=== PATIENT | male | born 1995 | race Hispanic/Latino ===

== ENCOUNTER 2021-09-28 23:00 | Inpatient (IN) | payer BC ==
[2021-09-28] MEDS ORDERED: ONDANSETRON 4 MG/2 ML VIAL ONE (23:55)
[2021-09-28] MEDS ORDERED: MORPHINE 4 MG/ML SYR ONE (23:55)
[2021-09-28] MEDS ORDERED: Ringers Lactate 1,000 ML IV ONE (23:55)
[2021-09-29 00:18] LABS: Absolute Lymphocytes (CBC) 1.7 K/uL (0.7-4.9); Hematocrit 48.3 % (39.6-49.0); Lymphocytes % 14.7 % (15.3-44.8); MPV 9.1 fL (7.6-11.3); RBC Red Blood Cell Count 5.43 M/uL (4.33-5.43)
[2021-09-29 00:41] LABS: BUN Blood Urea Nitrogen 17 mg/dL (7-18); Bicarbonate 29 mmol/L (21-32); Glucose Level 111 mg/dL (74-106); Potassium 3.9 mmol/L (3.5-5.1); Sodium Level 137 mmol/L (136-145)
[2021-09-29 00:42] LABS: ALT/SGPT 83 U/L (12-78); AST/SGOT 32 U/L (15-37); Albumin 3.9 g/dL (3.4-5.0); Alkaline Phosphatase 101 U/L (45-117); Bilirubin Direct 0.2 mg/dL (0-0.2); Bilirubin Total 0.8 mg/dL (0.2-1.0); Lipase 1229 U/L (73-393); Protein, Total 7.5 g/dL (6.4-8.2)
[2021-09-29 02:11] LABS: Urine Blood Trace-intact (Negative); Urine Glucose Negative (Negative); Urine Protein Negative (Negative); Urine Specific Gravity 1.015 (1.005-1.030); Urine pH 6.5 (5.0-7.0)
--- NOTE | 2021-09-29 02:19 | ER ---
Nurse's Notes [facility] Name: Jaydon Espana Age: 25 yrs Sex: Male : 1995 Arrival Date: 09/28/2021 Time: 23:05 Bed 16 Private MD: Diagnosis: Other acute pancreatitis without necrosis or infection Presentation: 09/28 23:19 Chief complaint: Patient states: I am having upper mid abdominal pain and back pain X 2 ld1 days. Coronavirus screen: At this time, the client does not indicate any symptoms associated with coronavirus-19. Ebola Screen: No symptoms or risks identified at this time. Initial Sepsis Screen: Does the patient meet any 2 criteria? No. Patient's initial sepsis screen is negative. Does the patient have a suspected source of infection? No. Patient's initial sepsis screen is negative. Risk Assessment: Do you want to hurt yourself or someone else? Patient reports no desire to harm self or others. Onset of symptoms was September 28, 2021. 23:19 Method Of Arrival: Ambulatory ld1 23:19 Acuity: AURELIA 3 ld1 Triage Assessment: 23:21 General: Appears in no apparent distress. comfortable, Behavior is calm, cooperative, ld1 appropriate for age. Pain: Complains of pain in back and epigastric area Pain does not radiate. Neuro: Level of Consciousness is awake, alert, obeys commands, Oriented to person, place, time, situation. Respiratory: Airway is patent Respiratory effort is even, unlabored, Respiratory pattern is regular, symmetrical. GI: Abdomen is round non-distended. Historical: - Allergies: 23:21 No Known Allergies; ld1 - Home Meds: 23:21 losartan-hydrochlorothiazide oral [Active]; rosuvastatin oral [Active]; ld1 - PMHx: 23:21 Hypertensive disorder; Hypercholesterolemia; Fatty liver; Pancreatitis; ld1 - PSHx: 23:21 None; ld1 - Immunization history:: Adult Immunizations not up to date, Client reports having NOT received the Covid vaccine. - Social history:: Smoking status: Reported history of juuling and/or vaping. Patient uses alcohol, on a daily basis. Screenin/06 00:12 Abuse screen: Denies threats or abuse. Nutritional screening: No deficits noted. ld1 Tuberculosis screening: No symptoms or risk factors identified. Fall Risk None identified. Assessment: 00:12 GI: Bowel sounds present X 4 quads. hyperactive in right upper quadrant, left upper ld1 quadrant, right lower quadrant and left lower quadrant Abdomen is tender to palpation in left upper quadrant and left lower quadrant. 00:13 General: Appears uncomfortable, well groomed, Behavior is calm, cooperative, ld1 appropriate for age, Smells of. Pain: Complains of pain in left low back and right low back and abdomen. Neuro: No deficits noted. Cardiovascular: No deficits noted. Respiratory: No deficits noted. : No deficits noted. Derm: No deficits noted. 01:15 Reassessment: Patient and/or family updated on plan of care and expected duration. Pain ld1 level reassessed. Patient is alert, oriented x 3, equal unlabored respirations, skin warm/dry/pink. Patient states feeling better. 02:30 Reassessment: Patient and/or family updated on plan of care and expected duration. Pain bb level reassessed. Patient is alert, oriented x 3, equal unlabored respirations, skin warm/dry/pink. Patient states feeling better. Patient states symptoms have improved. 10:02 Reassessment: Pt aaox4, ambulatory to restroom and back without difficulty. Pt eo2 presently denies pain, educated on lovenox ordered, refused medical lead, also refused nicotine patch stating "I don't smoke that much". Pt with clear fluids breakfast tray, tolerated well. Pt appears in NAD, comfort measures met, will continue to monitor. 21:16 Reassessment: Pt transported to unit via wheelchair. In NAD. Denies pain. Amb w steady ic1 gait. AAOx4. GCS 15. Vital Signs: 09/28 23:19 BP 156 / 108; Pulse 86; Resp 18; Temp 98.4(O); Pulse Ox 100% on R/A; Weight 81.65 kg; ld1 Height 5 ft. 4 in. (162.56 cm); Pain 8/10; 09/29 00:12 BP 136 / 89; Pulse 89; Pulse Ox 99% ; Pain 8/10; ld1 02:30 BP 130 / 88; Pulse 87; Resp 16; Pulse Ox 100% on R/A; Pain 6/10; bb 10:00 BP 144 / 92; Pulse 69; Resp 17; Temp 98.5; Pulse Ox 99% ; Pain 0/10; eo2 21:16 BP 129 / 91; Pulse 84; Resp 18; Pulse Ox 100% on R/A; ic1 09/28 23:19 Body Mass Index 30.90 (81.65 kg, 162.56 cm) ld1 ED Course: 09/28 23:05 Patient arrived in ED. kc5 23:21 Triage completed. ld1 23:21 Arm band placed on right wrist. ld1 23:26 Tony Bender PA is PHCP. jmm 23:26 Sebas Corona MD is Attending Physician. jmm 23:39 Initial lab(s) drawn, by wa, sent to lab. Inserted saline lock: 22 gauge in right lt3 antecubital area, using aseptic technique. 09/29 00:11 Ruthie Montgomery, RN is Primary Nurse. ld1 00:13 Patient has correct armband on for positive identification. Bed in low position. Call ld1 light in reach. Adult w/ patient. 01:37 US Abdomen Limited In Process Unspecified. EDMS 01:41 CT Abd/Pelvis - IV Contrast Only In Process Unspecified. EDMS 02:17 Hamilton Sibley MD is Hospitalizing Provider. jmm 03:20 No provider procedures requiring assistance completed. Patient admitted, IV remains in bb place. intact, bleeding controlled, No redness/swelling at site. Administered Medications: 09/28 23:58 Drug: Lactated Ringers Solution 1000 ml Route: IV; Rate: 1000 bolus; Site: right ld1 antecubital; 09/29 03:22 Follow up: Response: No adverse reaction; IV Status: Completed infusion; IV Intake: bb 1000ml 09/28 23:58 Drug: morphine 4 mg Route: IVP; Site: right antecubital; ld1 09/29 03:22 Follow up: Response: No adverse reaction; Pain is decreased bb 09/28 23:58 Drug: Zofran (Ondansetron) 4 mg Route: IVP; Site: right antecubital; ld1 09/29 02:00 Follow up: Response: No adverse reaction; Pain is decreased bb Intake: 03:22 IV: 1000ml; Total: 1000ml. bb Outcome: 02:18 Decision to Hospitalize by Provider. jmm 03:20 Admitted to ER Hold. Please see EATON for further documentation. bb 03:20 Condition: stable 03:20 Instructed on the need for admit. 21:18 Patient left the ED. ic1 Signatures: Dispatcher [employer] EDTony Gibson PA PA jmm Ballard, Brenda RN RN bb Ruthie Montgomery RN RN ld1 Coleen Armstrong kc5 Lizet Maria 3 Tory Soni RN RN eo2 Radha Son RN RN ic1
--- NOTE | 2021-09-29 02:19 | EDPHYS ---
Physician Documentation [facility] Name: Jaydon Espana Age: 25 yrs Sex: Male : 1995 Arrival Date: 09/28/2021 Time: 23:05 Bed 16 Private MD: ED Physician Sebas Corona HPI: 09/29 00:46 This 25 yrs old Male presents to ER via Ambulatory with complaints of jmm Abdominal Pain, Low Back Pain. 00:46 The patient presents with abdominal pain. Onset: The symptoms/episode began/occurred jmm gradually, 2 day(s) ago. The symptoms radiate to Associated signs and symptoms: Pertinent positives: nausea and vomiting. The symptoms are described as achy, dull. Modifying factors: The symptoms are alleviated by nothing, the symptoms are aggravated by food. The patient has not experienced similar symptoms in the past. Historical: - Allergies: 09/28 23:21 No Known Allergies; ld1 - Home Meds: 23:21 losartan-hydrochlorothiazide oral [Active]; rosuvastatin oral [Active]; ld1 - PMHx: 23:21 Hypertensive disorder; Hypercholesterolemia; Fatty liver; Pancreatitis; ld1 - PSHx: 23:21 None; ld1 - Immunization history:: Adult Immunizations not up to date, Client reports having NOT received the Covid vaccine. - Social history:: Smoking status: Reported history of juuling and/or vaping. Patient uses alcohol, on a daily basis. ROS: 09/29 00:46 Constitutional: Negative for fever, chills, and weight loss, Cardiovascular: Negative jmm for chest pain, palpitations, and edema, Respiratory: Negative for shortness of breath, cough, wheezing, and pleuritic chest pain. Abdomen/GI: Positive for abdominal pain, nausea and vomiting. All other systems are negative. Exam: 00:46 Constitutional: This is a well developed, well nourished patient who is awake, alert, jmm and in no acute distress. Head/Face: atraumatic. Eyes: EOMI, no conjunctival erythema appreciated ENT: Moist Mucus Membranes Neck: Trachea midline, Supple Chest/axilla: Normal chest wall appearance and motion. Cardiovascular: Regular rate and rhythm. No edema appreciated Respiratory: Normal respirations, no respiratory distress appreciated 00:46 Back: Normal ROM Skin: General appearance color normal MS/ Extremity: Moves all extremities, no obvious deformities appreciated, no edema noted to the lower extremities Neuro: Awake and alert, normal gait Psych: Behavior is normal, Mood is normal, Patient is cooperative and pleasant 00:46 Abdomen/GI: Inspection: abdomen appears normal, Bowel sounds: normal, Palpation: soft, moderate abdominal tenderness, in the epigastric area, right upper quadrant and left upper quadrant. Vital Signs: 09/28 23:19 BP 156 / 108; Pulse 86; Resp 18; Temp 98.4(O); Pulse Ox 100% on R/A; Weight 81.65 kg; ld1 Height 5 ft. 4 in. (162.56 cm); Pain 8/10; 09/29 00:12 BP 136 / 89; Pulse 89; Pulse Ox 99% ; Pain 8/10; ld1 02:30 BP 130 / 88; Pulse 87; Resp 16; Pulse Ox 100% on R/A; Pain 6/10; bb 10:00 BP 144 / 92; Pulse 69; Resp 17; Temp 98.5; Pulse Ox 99% ; Pain 0/10; eo2 21:16 BP 129 / 91; Pulse 84; Resp 18; Pulse Ox 100% on R/A; ic1 09/28 23:19 Body Mass Index 30.90 (81.65 kg, 162.56 cm) ld1 MDM: 09/28 23:37 Patient medically screened. [facility] 09/29 02:17 Data reviewed: vital signs, nurses notes. Counseling: I had a detailed discussion with [facility] the patient and/or guardian regarding: the historical points, exam findings, and any diagnostic results supporting the discharge/admit diagnosis, the need for outpatient follow up, to return to the emergency department if symptoms worsen or persist or if there are any questions or concerns that arise at home. ED course: I discussed the patient with Dr. Sibley whom accepted the patient for admission. . 09/28 23:24 Order name: Basic Metabolic Panel; Complete Time: 00:45 ld09/28 23:24 Order name: CBC with Diff; Complete Time: 00:38 ld09/28 23:24 Order name: Hepatic Function; Complete Time: 00:45 ld1 09/28 23:24 Order name: Lipase; Complete Time: 00:45 ld09/29 00:47 Order name: SARS-COV-2 RT PCR (Document "Date of Onset" if Symptomatic) m 09/29 02:11 Order name: Urine Dipstick-Ancillary; Complete Time: 02:13 EDMS 09/29 02:56 Order name: Comprehensive Metabolic Panel EDMS 09/29 02:56 Order name: Comprehensive Metabolic Panel EDMS 09/29 02:56 Order name: Lipid Profile EDMS 09/29 02:56 Order name: Lipid Profile EDMS 09/29 02:56 Order name: CBC with Automated Diff EDMS 09/29 02:56 Order name: CBC with Automated Diff EDMS 09/29 02:57 Order name: Lipase EDMS 09/29 02:57 Order name: Lipase EDMS 09/28 23:24 Order name: IV Saline Lock; Complete Time: 23:39 ld1 09/28 23:24 Order name: Labs collected and sent; Complete Time: 23:39 1 09/28 23:39 Order name: CT Abd/Pelvis - IV Contrast Only [facility] 09/29 00:39 Order name: US Abdomen Limited [facility] 09/29 02:56 Order name: Clear Liquid EDMO Administered Medications: 09/28 23:58 Drug: Lactated Ringers Solution 1000 ml Route: IV; Rate: 1000 bolus; Site: right ld1 antecubital; 09/29 03:22 Follow up: Response: No adverse reaction; IV Status: Completed infusion; IV Intake: bb 1000ml 09/28 23:58 Drug: morphine 4 mg Route: IVP; Site: right antecubital; 1 09/29 03:22 Follow up: Response: No adverse reaction; Pain is decreased 09/28 23:58 Drug: Zofran (Ondansetron) 4 mg Route: IVP; Site: right antecubital; 1 09/29 02:00 Follow up: Response: No adverse reaction; Pain is decreased Disposition: 09/30 02:10 Co-signature as Attending Physician, Sebas Corona MD. pkl Disposition Summary: 09/29/21 02:18 Hospitalization Ordered Hospitalization Status: Observation jm Provider: Hamilton Sibley Condition: Stable jmm Problem: new jmm Symptoms: are unchanged jmm Bed/Room Type: Standard [facility] Location: Telemetry/MedSurg (observation)(09/29/21 19:51) Room Assignment: 429(09/29/21 19:51) cg Diagnosis - Other acute pancreatitis without necrosis or infection [facility] Forms: - Medication Reconciliation Form [facility] - SBAR form [facility] Signatures: Dispatcher [employer] EDMS Sebas Corona MD MD pkl Mickail, Joel, PA PA jmm Smirch, Shelby, RN RN ss Niru Vaca RN RN cg Ruthie Montgomery RN RN ld1 Mckenzie Alejandre RN bb Corrections: (The following items were deleted from the chart) 09/28 23:59 23:24 Urine Dipstick-Ancillary ordered. ld1 ld1 09/29 11:57 02:18 Telemetry/MedSurg (observation) [facility] 11:57 02:18 [facility] 19:51 11:57 [facility] [place] [facility] [facility]
--- NOTE | 2021-09-29 02:41 | P.HP ---
Certification for Inpatient Patient admitted to: Observation With expected LOS: >2 Midnights Patient will require the following post-hospital care: None Practitioner: I am a practitioner with admitting privileges, knowledge of patient current condition, hospital course, and medical plan of care. Services: Services provided to patient in accordance with Admission requirements found in Title 42 Section 412.3 of the Code of Federal Regulations Patient History Date of Service: 09/29/21 Reason for admission: Abdominal pain History of Present Illness: 25-year-old male with past medical history of hypertension, hyperlipidemia, previous pancreatitis admitted after developing abdominal pain epigastric area radiating to the back, since the last 2 days. Patient states recent alcoholic binge. He is a daily smoker and drinks alcohol daily basis. He denies any fever, dysuria or hematuria. On presentation in the ED he had noted elevated lipase of greater than [address] scan evidence of acute pancreatitis. An abdominal ultrasound shows no evidence of gallstones. He has been admitted for acute pancreatitis Home medications list reviewed: Yes - Past Medical/Surgical History Has patient received pneumonia vaccine in the past: No Diabetic: No -: Hypertension -: Hyperlipidemia -: Chronic alcohol use Past Surgical History: Reviewed- Non-Contributory - Social History Smoking Status: Light Tobacco smoker (1-9 cigarettes/day) Smoking therapy provided: Yes Patient receptive to therapy: Yes Alcohol use: Yes CD- Drugs: No Caffeine use: No Place of Residence: Home Review of Systems 10-point ROS is otherwise unremarkable Physical Examination - Physical Exam General: Alert, In no apparent distress, Oriented x3 HEENT: Atraumatic, Normocephalic, PERRLA Neck: Supple, 2+ carotid pulse no bruit, JVD not distended Respiratory: Clear to auscultation bilaterally, Normal air movement Cardiovascular: No edema, Normal pulses, Regular rate/rhythm, Normal S1 S2 Capillary refill: <2 Seconds Gastrointestinal: Normal bowel sounds, Soft and benign, Non-distended, No ascites, Tenderness Musculoskeletal: No clubbing, No swelling Neurological: Normal gait, Normal speech, Normal strength at 5/5 x4 extr - Studies Laboratory Data (last 24 hrs) 09/28/21 23:30: WBC 11.30 H, Hgb 16.4, Hct 48.3, Plt Count 210 09/28/21 23:30: Sodium 137, Potassium 3.9, BUN 17, Creatinine 0.95, Glucose 111 H, Total Bilirubin 0.8, AST 32, ALT 83 H, Alkaline Phosphatase 101, Lipase 1229 H Assessment and Plan - Problems (Diagnosis) (1) Acute pancreatitis Current Visit: Yes Status: Acute (2) Hypertension Current Visit: Yes Status: Acute (3) HLD (hyperlipidemia) Current Visit: Yes Status: Acute - Plan Acute pancreatitis/will admit to observation Gentle IV fluid Will do n.p.o. status for now. Advance to clear liquid in a.m. if trending down lipase As needed IV pain medication Need for alcohol cessation discussed Follow lipase trend daily Possible hospital stay for the next 1 to 2 days Chronic alcohol use/withdrawal Ativan as needed Chronic tobacco usepatient still vapes, tobacco cessation advised We will do nicotine patch Hypertensionresume home regimen with losartan DVT prophylaxissubcutaneous Lovenox - Advance Directives Does patient have a Living Will: No Does patient have a Durable POA for Healthcare: No Time Spent Managing Pts Care (In Minutes): 60
[2021-09-29] MEDS ORDERED: ONDANSETRON 4 MG/2 ML VIAL IV PRN (02:54)
[2021-09-29] MEDS: NA CHLORIDE 0.9% 1,000 ML IV SCH ×3 (03:00→22:05)
[2021-09-29] MEDS ORDERED: HYDRALAZINE HCL 20 MG/ML VIAL IV PRN (03:01)
[2021-09-29] MEDS ORDERED: LORAZEPAM 0.5 MG TABLET PO PRN (03:01)
[2021-09-29 04:31] VITALS: BMI 27.4
[2021-09-29] MEDS ORDERED: NA CHLORIDE 0.9% 1,000 ML ONE ×2 (05:25→13:54)
[2021-09-29] MEDS ORDERED: MORPHINE 4 MG/ML SYR ONE (05:25)
[2021-09-29] MEDS: MORPHINE 2 MG/ML SYR IV PRN ×2 (05:35→23:24)
--- NOTE | 2021-09-29 07:56 | RAD REPORT ---
EXAM DESCRIPTION: US - Abdomen Exam Limited - 09/29/2021 1:37 am CLINICAL HISTORY: Abdominal pain. COMPARISON: None. FINDINGS: The gallbladder wall is not thickened. A gallstone is not seen. The biliary tree is normal caliber. Small amount of peripancreatic fluid IMPRESSION: Unremarkable gallbladder ultrasound. Small amount of peripancreatic fluid may indicate pancreatitis
[2021-09-29] MEDS ORDERED: NICOTINE 21 MG/PAT TD ONE (09:26)
[2021-09-29] MEDS ORDERED: ENOXAPARIN 40 MG/0.4 ML SQ ONE (09:27)
[2021-09-29] MEDS: ENOXAPARIN 40 MG/0.4 ML SQ SCH (09:30)
[2021-09-29] MEDS: NICOTINE 21 MG/PAT TD SCH (09:30)
--- NOTE | 2021-09-29 15:56 | P.PN ---
Date of Service: 09/29/21 Problem List Acute pancreatitis COVID-19 positive feeling better, still with pain/discomfort tolerating clear liquids for lunch will advance to soft diet for dinner if continues to improve, anticipate dc home tomorrow patient also found to be positive for COVID, no respiratory symptoms, 99% on RA
--- NOTE | 2021-09-29 17:48 | RAD REPORT ---
EXAM DESCRIPTION: CT - Abdomen Pelvis W Contrast - 09/29/2021 4:37 am CLINICAL HISTORY: 25 years, Male, ABD PAIN COMPARISON: None TECHNIQUE: Contrast-enhanced images of the abdomen and pelvis were performed utilizing 5 mm slice th ickness at 5 mm interval reconstruction from the lung bases to the ischial tuberosities after the adm inistration IV contrast. In addition multiplanar reformats in the coronal and sagittal plane were obtained and reviewed. This exam was performed according to our departmental dose-optimization protocol, which includes auto mated exposure control, adjustment of the mA and/or kV according to patient size and/or use of iterat ez reconstruction technique. FINDINGS: The lung bases demonstrate to be clear. The liver demonstrate decreased attenuation corresponding to fatty infiltration. Otherwise the liver, gallbladder, spleen and adrenal glands demonstrate to be unremarkable, no focal lesions are noted. There is prominence of the pancreatic head/uncinate process measuring 3.9 cm with surrounding peripan creatic haziness tracking along the right side mesenteric root and right paracolic gutter on axial im age 24-47 corresponding to pancreatitis. There is no evidence for pseudocyst formation and/or hemorrh age. The kidneys demonstrate normal uptake of contrast media. No evidence for nephrolithiasis and/or hydro nephrosis. There is a tiny upper pole left renal cyst measuring 0.8 cm on image 18/92 Grossly the unopacified stomach, small bowel and large bowel demonstrate to be within normal limits. There is no evidence for bowel dilatation and/or free air. The appendix is normal. The left site colon is decompressed The urinary bladder demonstrate to be unremarkable. The prostate gland is normal. The aorta demon strate to be normal. There is no retroperitoneal lymphadenopathy. There is no evidence for ascites/ or significant abnormal fluid collections. The rest of the soft tissue and bony structures are within normal limits. IMPRESSION: Findings highly suggestive of acute pancreatitis. Fatty infiltration of the liver. 0.8 cm left renal cyst. Electronically signed by: Radames Flores MD 09/29/2021 2:04 AM [employer] ARCHITECT Due to temporary technical issues with the PACS/Fluency reporting system, reports are being signed by the in house radiologists without review as a courtesy to insure prompt reporting. The interpreting radiologist is fully responsible for the content of the report.
[2021-09-30] MEDS: MORPHINE 2 MG/ML SYR IV PRN ×2 (03:15→23:28)
[2021-09-30 03:33] LABS: Absolute Lymphocytes (CBC) 2.9 K/uL (0.7-4.9); Hematocrit 47.4 % (39.6-49.0); Lymphocytes % 37.1 % (15.3-44.8); MPV 8.8 fL (7.6-11.3); RBC Red Blood Cell Count 5.26 M/uL (4.33-5.43)
[2021-09-30 03:52] LABS: ALT/SGPT 76 U/L (12-78); AST/SGOT 34 U/L (15-37); Albumin 3.5 g/dL (3.4-5.0); Alkaline Phosphatase 91 U/L (45-117); BUN Blood Urea Nitrogen 8 mg/dL (7-18); Bicarbonate 30 mmol/L (21-32); Bilirubin Total 0.8 mg/dL (0.2-1.0); Glucose Level 94 mg/dL (74-106); HDL Cholesterol 47 mg/dL (40-60); LDL Cholesterol, Calculated 85 (<130); Lipase 1054 U/L (73-393); Potassium 3.6 mmol/L (3.5-5.1); Protein, Total 7.3 g/dL (6.4-8.2); Sodium Level 138 mmol/L (136-145)
[2021-09-30] MEDS: NA CHLORIDE 0.9% 1,000 ML IV SCH (08:34)
[2021-09-30] MEDS: NICOTINE 21 MG/PAT TD SCH (08:34)
[2021-09-30] MEDS: ENOXAPARIN 40 MG/0.4 ML SQ SCH (08:34)
[2021-09-30] MEDS ORDERED: KETOROLAC 30 MG/ML INJ IV ONE (18:21)
--- NOTE | 2021-09-30 18:28 | P.PN ---
Date of Service: 09/30/21 Subjective: Worsening pain after soft diet Reports did okay with clear liquids yesterday No new symptoms no nausea, no shortness of breath, no cough ROS: 10 point ROS as noted above, otherwise negative Physical exam GEN: Alert, oriented, NAD HEENT: Normal conjunctiva, sclera anicteric CV: Regular rate and rhythm, no edema Pulm: Nonlabored respiration on room air ABD: Soft, mild epigastric tenderness Neuro: Normal speech, normal affect Problem List Acute pancreatitis COVID-19 positive Painless soft diet, back down to clear liquids for breakfast and lunch If tolerates can be discharged home later today Would not need any prescriptions on discharge Advised to never drink alcohol again patient also found to be positive for COVID, no respiratory symptoms, 99% on RA Time Spent Managing Pts Care (In Minutes): 35
[2021-09-30] MEDS ORDERED: KETOROLAC 30 MG/ML INJ IV PRN (22:34)
[2021-10-01 00:45] VITALS: O2SAT 100
[2021-10-01] MEDS ORDERED: ACETAMINOPHEN 500 MG TAB PO PRN (06:12)
--- NOTE | 2021-10-01 06:14 | P.PN ---
Date of Service: 10/01/21 Subjective: ROS: 10 point ROS as noted above, otherwise negative Physical exam GEN: Alert, oriented, NAD HEENT: Normal conjunctiva, sclera anicteric CV: Regular rate and rhythm, no edema Pulm: Nonlabored respiration on room air ABD: Soft, mild epigastric tenderness Neuro: Normal speech, normal affect Problem List Acute pancreatitis COVID-19 positive Painless soft diet, back down to clear liquids for breakfast and lunch If tolerates can be discharged home later today Would not need any prescriptions on discharge Advised to never drink alcohol again patient also found to be positive for COVID, no respiratory symptoms, 99% on RA Time Spent Managing Pts Care (In Minutes): 35
[2021-10-01] MEDS: ENOXAPARIN 40 MG/0.4 ML SQ SCH (07:46)
[2021-10-01] MEDS: NICOTINE 21 MG/PAT TD SCH (07:47)
[2021-10-01] MEDS ORDERED: SODIUM CHL 0.9% 1000 ML BAG IV ONE (09:00)
[2021-10-01 10:09] LABS: ALT/SGPT 70 U/L (12-78); AST/SGOT 32 U/L (15-37); Albumin 3.5 g/dL (3.4-5.0); Alkaline Phosphatase 79 U/L (45-117); BUN Blood Urea Nitrogen 9 mg/dL (7-18); Bicarbonate 30 mmol/L (21-32); Bilirubin Total 0.7 mg/dL (0.2-1.0); Glucose Level 114 mg/dL (74-106); Lipase 844 U/L (73-393); Potassium 3.8 mmol/L (3.5-5.1); Protein, Total 7.2 g/dL (6.4-8.2); Sodium Level 139 mmol/L (136-145)
[2021-10-01 13:50] VITALS: BP 124/76; TEMP 97.8
--- NOTE | 2021-10-01 16:29 | P.DS ---
Admission Date: 09/29/21 Discharge Date: 10/01/21 Disposition: ROUTINE DISCHARGE Discharge Condition: GOOD Reason for Admission: Pancreatitis Procedures: CT abdomen/pelvis (09/29): FINDINGS: The lung bases demonstrate to be clear. The liver demonstrate decreased attenuation corresponding to fatty infiltration. Otherwise the liver, gallbladder, spleen and adrenal glands demonstrate to be unremarkable, no focal lesions are noted. There is prominence of the pancreatic head/uncinate process measuring 3.9 cm with surrounding peripancreatic haziness tracking along the right side mesenteric root and right paracolic gutter on axial image 24-47 corresponding to pancreatitis. There is no evidence for pseudocyst formation and/or hemorrhage. The kidneys demonstrate normal uptake of contrast media. No evidence for nephrolithiasis and/or hydronephrosis. There is a tiny upper pole left renal cyst measuring 0.8 cm on image 18/92 Grossly the unopacified stomach, small bowel and large bowel demonstrate to be within normal limits. There is no evidence for bowel dilatation and/or free air. The appendix is normal. The left site colon is decompressed The urinary bladder demonstrate to be unremarkable. The prostate gland is normal. The aorta demonstrate to be normal. There is no retroperitoneal lymphadenopathy. There is no evidence for ascites/or significant abnormal fluid collections. The rest of the soft tissue and bony structures are within normal limits. IMPRESSION: Findings highly suggestive of acute pancreatitis. Fatty infiltration of the liver. 0.8 cm left renal cyst. Abdominal ultrasound (09/29): FINDINGS: The gallbladder wall is not thickened. A gallstone is not seen. The biliary tree is normal caliber. Small amount of peripancreatic fluid IMPRESSION: Unremarkable gallbladder ultrasound. Small amount of peripancreatic fluid may indicate pancreatitis Problem List Acute alcoholic pancreatitis COVID-19 positive, asymptomatic Brief History of Present Illness: 25yo M, PMH: HTN, HLD, prior pancreatitis presented to ED due to worsening epigastric abdominal pain radiating to his back over the last 2 days. Patient states he had a similar episode and was diagnosed with pancreatitis at that time. Patient states he had a recent alcoholic binge that seem to set this off. Denies any fever, dysuria, hematuria, nausea/vomiting, diarrhea. In the ED, lipase noted to be in 1200s, CT concerning for acute pancreatitis. Admitted for further management. Hospital Course: Patient improved with IV fluid hydration and diet was slowly advanced to clear liquids. Patient was unable to tolerate soft foods due to worsening of his pain. On day of discharge she tolerated breakfast and lunch with clear liquids with some minimalmild discomfort. Discharged home to continue on clear liquids, with prescription for tramadol. Advised to slowly incorporate more regular, nonfatty foods in 3 to 5 days/once no longer having abdominal pain. Incidentally found to be COVID-19 positive. He was asymptomatic, breathing comfortably on room air with oxygen saturation of 99%. Throughout the hospitalization he denied any other symptoms. Advised to quarantine for an additional 7 days Advised to completely abstain from alcohol. Vital Signs/Physical Exam: Physical exam GEN: Alert, oriented, NAD HEENT: Normal conjunctiva, sclera anicteric CV: Regular rate and rhythm, no edema Pulm: Nonlabored respiration on room air ABD: Soft, minimal epigastric tenderness on deep palpation Neuro: Normal speech, normal affect Temp Pulse Resp BP Pulse Ox 97.8 F 69 18 124/76 97 10/01/21 12:00 10/01/21 12:00 10/01/21 12:00 10/01/21 12:00 10/01/21 12:00 Laboratory Data at Discharge: WBC 7.80 K/uL (4.3-10.9) D 09/30/21 03:15 Hgb 15.9 g/dL (13.6-17.9) 09/30/21 03:15 Hct 47.4 % (39.6-49.0) 09/30/21 03:15 Plt Count 207 K/uL (152-406) 09/30/21 03:15 Sodium 139 mmol/L (136-145) 10/01/21 09:45 Potassium 3.8 mmol/L (3.5-5.1) 10/01/21 09:45 BUN 9 mg/dL (7-18) 10/01/21 09:45 Creatinine 0.90 mg/dL (0.55-1.3) 10/01/21 09:45 Glucose 114 mg/dL (74-106) H 10/01/21 09:45 Total Bilirubin 0.7 mg/dL (0.2-1.0) 10/01/21 09:45 AST 32 U/L (15-37) 10/01/21 09:45 ALT 70 U/L (12-78) 10/01/21 09:45 Alkaline Phosphatase 79 U/L (45-117) 10/01/21 09:45 Triglycerides 93 mg/dL (<150) 09/30/21 03:15 Cholesterol 151 mg/dL (<200) 09/30/21 03:15 HDL Cholesterol 47 mg/dL (40-60) 09/30/21 03:15 Cholesterol/HDL Ratio 3.21 09/30/21 03:15 Lipase 844 U/L (73-393) H 10/01/21 09:45 Home Medications: Losartan/Hydrochlorothiazide [Losartan-Hctz 50-12.5 mg Tab] 1 each PO DAILY 0 09/30/21 Rosuvastatin [Crestor] 20 mg PO DAILY 09/30/21 Tramadol HCl [Ultram] 50 mg PO Q8H PRN #10 tablet 10/01/21 New Medications: Tramadol HCl [Ultram] 50 mg PO Q8H PRN #10 tablet PRN Reason: Pain Scale 5-7 (Moderate) Physician Discharge Instructions: You were diagnosed with pancreatitis. You improved with bowel rest and slow advancement of your diet. Recommend continuing with liquid diet for a few days, avoid fatty foods. Once able to tolerate completely without any pain, would slowly start adding more regular food. Still avoid fatty foods. Recommend never drinking alcohol again. Even a sip can set this off again. Diet: Grainger (liquid) Followup: NONE,NONE [Primary Care Provider] - Time spent managing pt's care (in minutes): 45
== END 2021-10-01 14:58 | disposition home or self-care (01) | DRG 438 ==
LOC: ER 23:00 → ERHOLD 09-29 03:01 → OBSVTOIN 09-29 14:12 → 4TH 09-29 20:48
PROVIDERS: ADMIT Internal Medicine; ATTEND Internal Medicine
DX: K85.20 Alcohol induced acute pancreatitis without necrosis or infection (principal); U07.1 COVID-19; I10 Essential (primary) hypertension; E78.5 Hyperlipidemia, unspecified; F17.210 Nicotine dependence, cigarettes, uncomplicated; Z72.89 Other problems related to lifestyle
CPT/HCPCS: 36415; 74177; 76705; 80048; 80053; 80061; 80076; 81003; 83690; 85025; 96361; 96374; 96375; 99285; G0378; J1650; J2270; J2405; J7030; J7120; Q9967; U0003